=== PATIENT | male | born 1980 | race Asian ===

== ENCOUNTER 2020-01-14 20:02 | Emergency (ER) | payer MEDICAID ==
[~2020-01-14] VITALS: Ht 177.8 cm; Wt 85.0 kg
[2020-01-14] MEDS ORDERED: ACETAMINOPHEN WITH CODEINE 300/30MG TABLET PO ONE (22:30)
[2020-01-14] MEDS ORDERED: CYCLOBENZAPRINE 10MG TABLET PO ONE (23:30)
[2020-01-14 23:40] VITALS: BP 122/74
== END 2020-01-14 23:41 | disposition home or self-care (01) ==
LOC: ER 20:02
DX: M54.2 Cervicalgia (principal); Z88.6 Allergy status to analgesic agent
CPT/HCPCS: 99283

== ENCOUNTER 2020-03-12 04:33 | Emergency (ER) | payer MEDICAID, OTHER ==
[~2020-03-12] VITALS: Ht 177.8 cm; Wt 108.0 kg
[2020-03-12] MEDS ORDERED: METHYLPREDNISOLONE SOD SUCC 125 MG/2 ML VIAL IM STA (05:21)
[2020-03-12] MEDS ORDERED: KETOROLAC 60MG/2ML VIAL IM ONE (05:30)
[2020-03-12] MEDS ORDERED: DIPHENHYDRAMINE 50MG/ML VIAL IM ONE (05:30)
[2020-03-12 06:35] VITALS: BP 109/68
== END 2020-03-12 06:35 | disposition home or self-care (01) ==
LOC: ER 04:56
DX: M79.672 Pain in left foot (principal); M25.561 Pain in right knee; M10.9 Gout, unspecified; Z88.6 Allergy status to analgesic agent
CPT/HCPCS: 96372; 99284; J1200; J1885; J2930; Z7610

== ENCOUNTER 2021-06-17 01:54 | Emergency (ER) | payer MEDICAID ==
[~2021-06-17] VITALS: Ht 177.8 cm; Wt 107.0 kg
[2021-06-17] MEDS ORDERED: KETOROLAC 60MG/2ML VIAL IM STA (03:27)
[2021-06-17] MEDS ORDERED: DEXAMETHASONE 10 MG/ML VIAL IM STA (03:27)
[2021-06-17 04:15] VITALS: BP 129/79
[2021-06-17] MEDS ORDERED: COLC0.6C3 PO (04:19)
[2021-06-17] MEDS ORDERED: TRAM50TA3 PO (04:19)
== END 2021-06-17 04:36 | disposition home or self-care (01) ==
LOC: ER 01:54
DX: M25.561 Pain in right knee (principal); M10.9 Gout, unspecified; Z88.6 Allergy status to analgesic agent; Z98.890 Other specified postprocedural states
CPT/HCPCS: 96372; 99284; J1100; J1885

== ENCOUNTER 2022-04-22 09:04 | Emergency (ER) | payer MEDICAID ==
[~2022-04-22] VITALS: Ht 172.7 cm; Wt 113.0 kg
[~2022-04-22 09:04] MED LIST: COLC0.6C3 PO; TRAM50TA3 PO
[2022-04-22] MEDS ORDERED: COLC0.6C3 PO (11:30)
[2022-04-22] MEDS ORDERED: KETOROLAC 60MG/2ML VIAL IM ONE (11:30)
[2022-04-22] MEDS ORDERED: TRAM50TA3 PO (11:30)
[2022-04-22] MEDS ORDERED: HYDROCODONE/ACETAMINOPHEN 10/325MG TABLET PO ONE (11:30)
[2022-04-22 11:37] VITALS: BP 128/90
== END 2022-04-22 11:47 | disposition home or self-care (01) ==
LOC: ER 09:04
DX: M10.9 Gout, unspecified (principal); Z88.6 Allergy status to analgesic agent
CPT/HCPCS: 96372; 99283; J1885